=== PATIENT | male | born 1995 | race African-American/Black ===

== ENCOUNTER 2024-08-26 05:12 | Emergency (ER) | payer OTHER ==
[2024-08-26] MEDS: Acetaminophen 325 MG Tab PO ONE (05:38)
== END 2024-08-26 06:31 | disposition home or self-care (01) ==
LOC: DL.ED 05:12
DX: J02.9 Acute pharyngitis, unspecified (principal); F17.210 Nicotine dependence, cigarettes, uncomplicated
CPT/HCPCS: 87081; 87430; 87804; 99282; 99283; U0002